=== PATIENT | female | born 1995 | race Caucasian/White ===

== ENCOUNTER 2016-10-09 13:35 | Emergency (ER) | payer BC ==
[2016-10-09 15:07] VITALS: BP 112/70
--- NOTE | 2016-10-09 15:25 | UC ---
Abdominal Pain Female HPI - History of Current Complaint Chief Complaint: UCAbdominalPain Stated Complaint: LEFT SIDE ABDOMINAL PAIN Hx Obtained From: Patient Hx Last Menstrual Period: 09/08/16 ?: No Onset/Duration: Sudden Onset - Right lower abdominal pain, stabbing cramping pain., Lasting Days - 1 day, saw the [facility] yesterday and had a pelvic and ultrasound., Still Present, Worse Since - today with left sided pain. Timing: Intermittent Episodes Lasting: - cramping 30 seconds every 2-5 minutes for an hour at a time. Severity Initially: Severe Severity Currently: None Location: Discrete At: RLQ, Discrete At: LLQ Character: Cramping, Sharp Aggravating Factor(s): Nothing Alleviating Factor(s): Nothing Associated Signs and Symptoms: Positive: Diaphoresis - with pain., Nausea - with the pain.. Negative: Blood in Stool, Urinary Symptoms, Vaginal Discharge - Risk Factors Ectopic Risk Factor: IUD Use Allergies/Adverse Reactions: Allergies Allergy/AdvReac Type Severity Reaction Status Date / Time No Known Allergies Allergy Verified 10/09/16 14:55 Home Medications: Home Medications Ibuprofen TAB* [Advil TAB*] 200 mg PO Q6H PRN 10/09/16 [History Confirmed ] Levonorgestrel (Iud) [Kyleena IUD] 17.5 mcg IU 10/09/16 [History] PMH/Surg Hx/FS Hx/Imm Hx Previously Healthy: Yes Psychological History: Depression - Surgical History Surgical History: None - Family History Known Family History: Negative: Cardiac Disease, Hypertension, Diabetes - Social History Occupation: Employed Full-time Lives: With Family Alcohol Use: Rare Substance Use Type: None Smoking Status (MU): Never Smoked Tobacco Have You Smoked in the Last Year: No - Immunization History Vaccination Up to Date: Yes Review of Systems Constitutional: Chills Gastrointestinal: Abdominal Pain All Other Systems Reviewed And Are Negative: Yes Physical Exam Triage Information Reviewed: Yes Appearance: Well-Appearing, No Pain Distress, Well-Nourished Vital Signs: Initial Vital Signs Temp 97.8 F 10/09/16 14:58 Pulse 84 10/09/16 14:58 Resp 16 10/09/16 14:58 BP 112/70 10/09/16 14:58 Pulse Ox 100 10/09/16 14:58 Vital Signs Reviewed: Yes Eyes: Positive: Conjunctiva Clear ENT: Positive: Pharynx normal, TMs normal Neck exam: Normal Respiratory Exam: Normal Cardiovascular Exam: Normal Abdominal Exam: Normal, Other - Speculum exam with IUD strings in the cervical os. Abdomen Description: Positive: Nontender, No Organomegaly. Negative: CVA Tenderness (R), CVA Tenderness (L), Peritoneal Signs Bowel Sounds: Positive: Present Musculoskeletal Exam: Normal Neurological Exam: Normal Psychological Exam: Normal Skin Exam: Normal Abd Pain Female Course/Dx - Differential Dx/Diagnosis Differential Diagnosis: Pelvic Inflammatory Disease, Renal Colic, Urinary Tract Infection Provider Diagnoses: Pelvic pain Discharge - Discharge Plan Condition: Stable Disposition: HOME Prescriptions: Acetaminop/Codeine 30 MG TAB* [Tylenol/Codeine 30 MG TAB*] 1 - 2 tab PO Q6H PRN #20 tab MDD 8 PRN Reason: Pain - Moderate To Severe Patient Education Materials: Pelvic Pain in Women (ED), Acetaminophen/Codeine ( By mouth) Forms: *Work Release Additional Instructions: If pain is worse, especially with fever go to the ER.
--- NOTE | 2016-10-09 16:06 | RAD ---
HISTORY: Hematuria with left lower quadrant pain and cramping COMPARISONS: None VIEWS: Frontal views of the abdomen. FINDINGS: BOWEL: There is a nonobstructive bowel gas pattern. There is a moderate amount of stool within the colon. CALCULI: There are no abnormal calculi. BONES AND SOFT TISSUES: There are no osseous abnormalities. Incidentally noted is a small dysraphic defect of the posterior arch of L5. OTHER FINDINGS: The lung bases are clear. There is no subphrenic gas. An IUD is noted IMPRESSION: NONOBSTRUCTIVE BOWEL GAS PATTERN.
== END 2016-10-09 16:31 | disposition home or self-care (01) ==
LOC: UCCORT 13:35
DX: R10.2 Pelvic and perineal pain (principal); R10.32 Left lower quadrant pain; R10.31 Right lower quadrant pain; R61 Generalized hyperhidrosis; R11.0 Nausea; Z32.02 Encounter for pregnancy test, result negative; F32.9 Major depressive disorder, single episode, unspecified
CPT/HCPCS: 74000; 81003; 84702; 99212; G0463

== ENCOUNTER 2018-05-12 16:43 | Emergency (ER) | payer BC ==
[2018-05-12 17:05] VITALS: BP 114/73
--- NOTE | 2018-05-12 17:21 | UC ---
Throat Pain/Nasal Jemal HPI - HPI Summary HPI Summary: Pt presents with c/o chill, body aches, ST, cough and known exposure to flu. Pt was seen by PCP on 05/11/18 and was tested for flu- results were negative. Pt states that she is sure she is sick with flu. - History of Current Complaint Chief Complaint: UCRespiratory Stated Complaint: SORE THROAT,FLU EXPOSURE Time Seen by Provider: 05/12/18 16:59 Hx Obtained From: Patient Hx Last Menstrual Period: has an IUD, does not have reg periods ?: No Onset/Duration: Gradual Onset, Lasting Days, Still Present Severity: Moderate Pain Intensity: 6 Cough: Nonproductive Associated Signs & Symptoms: Positive: Fever - Epiglottits Risk Factors Epiglottis Risk Factors: Negative - Allergies/Home Medications Allergies/Adverse Reactions: Allergies Allergy/AdvReac Type Severity Reaction Status Date / Time No Known Allergies Allergy Verified 05/12/18 16:58 PMH/Surg Hx/FS Hx/Imm Hx Previously Healthy: Yes - Surgical History Surgical History: None - Family History Known Family History: Negative: Cardiac Disease, Hypertension, Diabetes - Social History Occupation: Student Alcohol Use: Rare Substance Use Type: None Smoking Status (MU): Never Smoked Tobacco Have You Smoked in the Last Year: No - Immunization History Vaccination Up to Date: Yes Review of Systems All Other Systems Reviewed And Are Negative: Yes Constitutional: Positive: Fever, Chills, Fatigue Skin: Positive: Negative Eyes: Positive: Negative ENT: Positive: Sore Throat Respiratory: Positive: Cough Cardiovascular: Positive: Negative Gastrointestinal: Positive: Negative Genitourinary: Positive: Negative Motor: Positive: Negative Neurovascular: Positive: Negative Musculoskeletal: Positive: Myalgia Neurological: Positive: Negative Psychological: Positive: Negative Is Patient Immunocompromised?: No Physical Exam Triage Information Reviewed: Yes Appearance: Well-Appearing Vital Signs: Initial Vital Signs Temp 99.1 F 05/12/18 16:59 Pulse 89 05/12/18 16:59 Resp 22 05/12/18 16:59 BP 114/73 05/12/18 16:59 Pulse Ox 99 05/12/18 16:59 Vital Signs Reviewed: Yes Eye Exam: Normal ENT: Positive: Nasal congestion Dental Exam: Normal Neck exam: Normal Respiratory Exam: Normal Cardiovascular Exam: Normal Musculoskeletal Exam: Normal Neurological Exam: Normal Psychological Exam: Normal Skin Exam: Normal Throat Pain/Nasal Course/Dx - Differential Dx/Diagnosis Differential Diagnosis/HQI/PQRI: Influenza, Pharyngitis, URI Provider Diagnosis: Viral syndrome Discharge - Sign-Out/Discharge Documenting (check all that apply): Patient Departure All imaging exams completed and their final reports reviewed: No Studies - Discharge Plan Condition: Stable Disposition: HOME Patient Education Materials: Viral Syndrome (ED) Referrals: Mitali Walton MD [Primary Care Provider] - If Needed - Billing Disposition and Condition Condition: STABLE Disposition: Home - Attestation Statements Provider Attestation: I was available for consult. This patient was seen by the TI. The patient was not presented to, seen by, or examined by me. -Cortney
[2018-05-12 17:27] LABS: Influenza A Molecular NEGATIVE (Negative); Influenza B Molecular NEGATIVE (Negative)
== END 2018-05-12 17:39 | disposition home or self-care (01) ==
LOC: UCCORT 16:43
DX: B34.9 Viral infection, unspecified (principal); J02.9 Acute pharyngitis, unspecified; R05 Cough; R52 Pain, unspecified
CPT/HCPCS: 99211; G0463

== ENCOUNTER 2018-12-25 18:22 | Emergency (ER) | payer BC ==
[2018-12-25 18:47] VITALS: BP 100/68
--- NOTE | 2018-12-25 18:53 | UC ---
Hand/Wrist HPI - HPI Summary HPI Summary: 23-year-old female who slipped and fell catching herself on her right palm and complains of right wrist pain. Incident happened approximately 2 hours prior to arrival. She denies any other injury. - History Of Current Complaint Chief Complaint: UCUpperExtremity Stated Complaint: RT WRIST INJURY Time Seen by Provider: 12/25/18 18:41 Hx Obtained From: Patient Hx Last Menstrual Period: 12/12/18 ?: No Onset/Duration: Sudden Onset Severity Initially: Mild Severity Currently: Mild Pain Intensity: 4 Character Of Pain: Sharp, Aching Aggravating Factor(s): Flexion, Extension Alleviating Factor(s): Rest Associated Signs And Symptoms: Positive: Negative - Allergies/Home Medications Allergies/Adverse Reactions: Allergies Allergy/AdvReac Type Severity Reaction Status Date / Time No Known Allergies Allergy Verified 12/25/18 18:40 PMH/Surg Hx/FS Hx/Imm Hx Previously Healthy: Yes - Surgical History Surgical History: None - Family History Known Family History: Negative: Cardiac Disease, Hypertension, Diabetes - Social History Alcohol Use: Rare Substance Use Type: None Smoking Status (MU): Never Smoked Tobacco Have You Smoked in the Last Year: No - Immunization History Vaccination Up to Date: Yes Review of Systems All Other Systems Reviewed And Are Negative: Yes Musculoskeletal: Positive: Other: - Full range of motion but pain right wrist with flexion/extension. Physical Exam Triage Information Reviewed: Yes Appearance: Well-Appearing, No Pain Distress, Well-Nourished Vital Signs: Initial Vital Signs Temp 99.5 F 12/25/18 18:41 Pulse 90 12/25/18 18:41 Resp 16 12/25/18 18:41 BP 100/68 12/25/18 18:41 Pulse Ox 100 12/25/18 18:41 Vital Signs Reviewed: Yes Musculoskeletal Exam: Normal Musculoskeletal: Positive: Strength Intact, ROM Intact, Other: - Good peripheral pulses, neuro sensation and capillary refill. Good finger strength with flexion extension against resistance. No deformity is noted, no bruising or erythema. Wrist is tender on palpation. Navicular nontender. Good shoulder and elbow stability. Neurological Exam: Normal Psychological Exam: Normal Skin Exam: Normal Hand/Wrist Course/Dx - Course Course Of Treatment: Right wrist x-ray: Negative as read by myself and Dr. Fuller. A cockup splint is applied and the patient is to keep that on until she calls back in the morning to find out the radiologist's reading of the x-ray. - Differential Dx/Diagnosis Provider Diagnosis: Sprain of wrist, right Discharge ED - Sign-Out/Discharge Documenting (check all that apply): Patient Departure All imaging exams completed and their final reports reviewed: No - Discharge Plan Condition: Good Disposition: HOME Patient Education Materials: Wrist Sprain (ED) Referrals: Joss Sam MD [Medical Doctor] - Mitali Walton MD [Primary Care Provider] - Additional Instructions: Apply ice intermittently over the next 24-48 hours, Tylenol every 4 hours for pain. Elevate as much as possible. Keep the cock-up splint on for comfort. You are to call here and find out the results of the x-ray tomorrow after 11 AM. If there is a fracture then you are to follow-up with the orthopedist, Dr. Sam, for further care. - Billing Disposition and Condition Condition: GOOD Disposition: Home
--- NOTE | 2018-12-26 12:12 | UC ---
- Progress Note Progress Note: xray report right wrist : no fracture noted Course/Dx - Diagnoses Provider Diagnoses: Sprain of wrist, right Discharge ED - Sign-Out/Discharge Documenting (check all that apply): Patient Departure All imaging exams completed and their final reports reviewed: Yes - Discharge Plan Condition: Good Disposition: HOME Patient Education Materials: Wrist Sprain (ED) Referrals: Joss Sam MD [Medical Doctor] - Mitali Walton MD [Primary Care Provider] - Additional Instructions: Apply ice intermittently over the next 24-48 hours, Tylenol every 4 hours for pain. Elevate as much as possible. Keep the cock-up splint on for comfort. You are to call here and find out the results of the x-ray tomorrow after 11 AM. If there is a fracture then you are to follow-up with the orthopedist, Dr. Sam, for further care. - Billing Disposition and Condition Condition: GOOD Disposition: Home
== END 2018-12-25 19:06 | disposition home or self-care (01) ==
LOC: UCCORT 18:22
DX: S63.501A Unspecified sprain of right wrist, initial encounter (principal); W01.0XXA Fall on same level from slipping, tripping and stumbling without subsequent striking against object, initial encounter; Y92.9 Unspecified place or not applicable
CPT/HCPCS: 99212; G0463